=== PATIENT | male | born 1975 | race Caucasian/White ===

== ENCOUNTER → 2019-09-20 11:16 | Outpatient (BNVA) | payer OTHER, SELFPAY | PROVIDERS: Visit Provider Nurse Practitioner Family | DX: R42 Dizziness and giddiness (principal); R03.0 Elevated blood-pressure reading, without diagnosis of hypertension | CPT/HCPCS: 80053; 85025 ==

== ENCOUNTER 2019-11-29 15:01 | Emergency (ER) | payer SELFPAY ==
[2019-11-29 15:13] VITALS: BP 174/95; PULSE 91; RESP 14; TEMP 35.8; O2SAT 98; BMI 33.9
--- NOTE | 2019-11-29 16:53 | XR_ITS ---
WS: [id number] XR lumbar spine 2-3V* [id number] REASON FOR EXAM: injury FINDINGS: Sidebending of the lumbar spine toward the left side. The lamina, pedicle, spinous processes are normal. The vertebral bodies and disc spaces otherwise were normal. At the T11 vertebra there is mild jaime kwan deformity. XR/XR lumbar spine 2-3V* [id number] IMPRESSION: Mild compression T11 vertebra The remaining lumbar spine normal.
--- NOTE | 2019-11-29 16:55 | ED_ITS ---
HPI - Back Pain/Injury General: Chief Complaint: Back Pain/Injury Stated Complaint: lower back pain Time Seen by Provider: 11/29/19 16:48 Source: patient Mode of arrival: ambulatory Limitations: no limitations History of Present Illness: HPI Narrative: 44-year-old male states at work 2 hours ago he started having lower back pain that was sharp in nature. He rates pain a 4-10. He states that radiates to bilateral hips. Denies any difficulty walking he has no bowel or bladder incontinence. He has no history of back pain. MD elicited complaint: back pain Onset (ago): hour(s) Timing: constant Severity: mild Similar Symptoms Previously: No Quality: sharp Location: lumbar spine Radiation: left upper leg and right upper leg Exacerbating factors: none Relieving factors: none Associated symptoms: Deny abdominal pain, chills, dysuria, fever(s), nausea or vomiting Review of Systems Const: Denies: fever(s), chills, body aches or change in appetite Eyes: Denies: blurry vision or eye discomfort ENMT: Denies: throat pain or dental pain Card: Denies: chest pain Resp: Denies: dyspnea GI: Denies: abdominal pain, nausea, vomiting or diarrhea : Denies: dysuria Musc: Reports: back pain; Denies: neck pain Skin/Breast: Denies: rash Neuro: Denies: headache(s) Psych: Denies: depression Georges/Lymph: Denies: easy bruising All/Imm: Denies: urticaria PFSH ED PFSH: Social History Smoking and tobacco status: current every day smoker cigarettes Packs smoked per day: 1 Alcohol intake: never Lives independently: Yes Household members: family Housing: House Marital status: Legally Current gender identity: Male Physical Exam Const: COMMON NORMALS: no acute distress, patient oriented x3 and healthy appearing HENMT: COMMON NORMALS: normocephalic and atraumatic HEAD & SCALP: normocephalic and atraumatic Eye: COMMON NORMALS: Equal, round and reactive pupils present and EOMs intact bilaterally PUPIL: Yes Equal, round and reactive pupils present Neck/C-Spine: COMMON NORMALS: full ROM and supple Chest: COMMONS NORMALS: normal inspection of the chest and normal palpation of entire chest wall Resp: COMMON NORMALS: normal respiratory effort, No retractions, No use of accessory muscles and clear to auscultation bilaterally AUSCULTATION: clear to auscultation bilaterally Cardio: COMMON NORMALS: regular rate, regular rhythm and No murmurs present (Cardio) RATE: regular rate RHYTHM: regular rhythm GI: COMMON NORMALS: Normal to inspection, nondistended, normoactive bowel sounds present, Soft to palpation, non-tender and no masses PALPATION: Yes Soft to palpation Back/Pelvis: OTHER: Slight tenderness of low back no saddle anesthesia. Extremity: COMMON NORMALS: normal to inspection and full ROM Neuro: COMMON NORMALS: patient oriented x3, moves all extremities and no focal motor deficits Psych: COMMON NORMALS: mental status grossly normal, Normal thought process present and cooperative THOUGHT PROCESS: Normal thought process present Skin: COMMON NORMALS: no rashes or lesions noted and no wounds GENERAL SKIN EXAM: no rashes or lesions noted Course Vital Signs: Vital signs: Vital Signs Temperature 96.4 F L 11/29/19 15:13 Pulse Rate 91 11/29/19 15:13 Respiratory Rate 14 11/29/19 15:13 Blood Pressure 174/95 11/29/19 15:13 Pulse Oximetry 98 11/29/19 15:13 MDM - Back Pain/Injury MDM Narrative: Medical decision making narrative: Patient presents with a lumbar sprain and low back pain. Patient has no signs of cord compression or epidural abscess. Patient is well-appearing here and has no saddle anesthesia. We will place him on Naprosyn and Robaxin he is stable for discharge. He is to follow-up with primary care doctor in 3 to 5 days return if worsening. Imaging Data^: X-ray lumbar spine: Attestation: I personally reviewed and interpreted this imaging study as follows: My impression: No acute abnormality Discharge Plan Discharge Patient Disposition: Home, Self-Care Clinical Impression: Strain of lumbar region Qualifiers: Encounter type: initial encounter Qualified Code(s): S39.012A - Strain of muscle, fascia and tendon of lower back, initial encounter Condition: Stable Prescriptions: New Robaxin-750 750 mg tablet 750 mg PO Q6H Qty: 30 RF: 0 Naprosyn 500 mg tablet 500 mg PO BID PRN (Reason: pain) Qty: 20 RF: 0 No Action ibuprofen 200 mg tablet 800 mg PO PRN PRN (Reason: Pain) RF: 0 Natural Herb For The Heart 1 tab PO DAILY RF: 0 Discharge Orders: Discharge Order (Routine); Ordered 11/29/19 Ordered By: Nicole Jo Discharge Diet: Advance as tolerated Discharge Activity: Resume usual activity Patient Instructions: Low Back Strain (ED), Back Pain (ED) Coding Level of Care Code ED [employer] Supervisor for Fernando Fwran Exam Comprehensive
[2019-11-29] MEDS: ketorolac 60 mg/2 mL INJ IM (17:13)
[2019-11-29] MEDS: dexamethasone 10 mg/mL INJ IM (17:13)
[2019-11-29 18:27] VITALS: BP 141/68; PULSE 78; RESP 17; O2SAT 98
== END 2019-11-29 18:30 | disposition home or self-care (01) ==
PROVIDERS: Emergency Provider Emergency Medicine
DX: S39.012A Strain of muscle, fascia and tendon of lower back, initial encounter (principal); X58.XXXA Exposure to other specified factors, initial encounter; F17.210 Nicotine dependence, cigarettes, uncomplicated
CPT/HCPCS: 12345; 72100; 96372; 99281; 99283; J1100; J1885

== ENCOUNTER → 2023-02-21 09:33 | Outpatient (BNVA) | payer OTHER, SELFPAY | PROVIDERS: PCP Nurse Practitioner; Visit Provider Nurse Practitioner | DX: F41.8 Other specified anxiety disorders (principal); Z13.6 Encounter for screening for cardiovascular disorders | CPT/HCPCS: 80053; 80061; 84443 ==

== ENCOUNTER → 2023-04-07 09:05 | Outpatient (BNVA) | payer OTHER, SELFPAY | PROVIDERS: PCP Nurse Practitioner; Visit Provider Nurse Practitioner | DX: F41.8 Other specified anxiety disorders (principal); R73.9 Hyperglycemia, unspecified; F43.10 Post-traumatic stress disorder, unspecified | CPT/HCPCS: 83036 ==

== ENCOUNTER → 2023-08-04 11:18 | Outpatient (BNVA) | payer OTHER, SELFPAY | PROVIDERS: PCP Nurse Practitioner; Visit Provider Nurse Practitioner | DX: Z11.3 Encounter for screening for infections with a predominantly sexual mode of transmission (principal); E11.65 Type 2 diabetes mellitus with hyperglycemia | CPT/HCPCS: 80053; 83036; 86592; 87806 ==

== ENCOUNTER → 2023-11-03 08:47 | Outpatient (BNVA) | payer OTHER, SELFPAY | PROVIDERS: PCP Nurse Practitioner; Visit Provider Nurse Practitioner | DX: E11.9 Type 2 diabetes mellitus without complications (principal) | CPT/HCPCS: 80053; 80061; 83036 ==

== ENCOUNTER → 2024-09-06 15:19 | Outpatient (BNVA) | payer OTHER, SELFPAY | PROVIDERS: PCP Nurse Practitioner; Visit Provider Nurse Practitioner | DX: I10 Essential (primary) hypertension (principal); E11.65 Type 2 diabetes mellitus with hyperglycemia | CPT/HCPCS: 80053; 80061; 83036 ==

== ENCOUNTER → 2024-11-29 16:36 | Outpatient (BNVA) | payer OTHER, SELFPAY | PROVIDERS: PCP Nurse Practitioner; Visit Provider Nurse Practitioner | DX: E11.65 Type 2 diabetes mellitus with hyperglycemia (principal) | CPT/HCPCS: 80053; 83036 ==

== ENCOUNTER → 2025-03-21 08:55 | Outpatient (BNVA) | payer OTHER, SELFPAY | PROVIDERS: PCP Nurse Practitioner; Visit Provider Nurse Practitioner | DX: Z12.5 Encounter for screening for malignant neoplasm of prostate (principal); E11.65 Type 2 diabetes mellitus with hyperglycemia | CPT/HCPCS: 80053; 80061; 82043; 83036; G0103 ==

== ENCOUNTER 2025-03-22 09:13 | Outpatient (CLI) | payer OTHER, SELFPAY ==
--- NOTE | 2025-03-22 09:24 | XRR_ITS ---
PROCEDURE INFORMATION: Exam: XR Left Hip Exam date and time: 03/22/2025 9:30 AM Age: 49 years old Clinical indication: Hip pain; Left hip; PT states he pulled muscle in hip & has pain in lower back as well; Additional info: M25.50 - pain in unspecified joint TECHNIQUE: Imaging protocol: Radiologic exam of the left hip. Views: 2 or 3 views hip with pelvis when performed. COMPARISON: CR XR lumbar spine 2-3V* [id number] 03/22/2025 9:30 AM FINDINGS: Bones/joints: Unremarkable. No acute fracture. No lytic or sclerotic bone lesion. Soft tissues: Unremarkable. XR/XR hip LT 2-3V wo/w pel* [id number] IMPRESSION: No acute findings.
--- NOTE | 2025-03-22 09:24 | XRR_ITS ---
PROCEDURE INFORMATION: Exam: XR Lumbosacral Spine Exam date and time: 03/22/2025 9:30 AM Age: 49 years old Clinical indication: Low back pain; PT states he pulled muscle in hip & has pain in lower back as well; Additional info: M25.50 - pain in unspecified joint TECHNIQUE: Imaging protocol: Radiologic exam of the lumbosacral spine. Views: 2 or 3 views. COMPARISON: CR XR lumbar spine 2-3V* [id number] 11/29/2019 5:49 PM FINDINGS: Bones/joints: Mild marginal spurring. Slight anterolisthesis L4 on L5. Mild upper endplate compression of T11 also seen previously. Soft tissues: Unremarkable. Organs: Cholelithiasis. XR/XR lumbar spine 2-3V* [id number] IMPRESSION: No acute abnormality.
== END 2025-03-22 09:14 | disposition home or self-care (01) ==
PROVIDERS: PCP Nurse Practitioner; Visit Provider Nurse Practitioner
DX: M25.552 Pain in left hip (principal)
CPT/HCPCS: 72100; 73502